=== PATIENT | female | born 1985 | race Caucasian/White ===

== ENCOUNTER 2020-02-03 11:28 | Outpatient (REF) | payer OTHER, SELFPAY ==
--- NOTE | 2020-02-03 11:43 | XR_ITS ---
EXAMINATION: XR CHEST CLINICAL INFORMATION: Chest pain COMPARISON: None TECHNIQUE: 2 views of the chest were obtained. FINDINGS: No significant abnormality is noted involving the heart, lungs, mediastinum, bony thorax or soft tissues. XR/XR chest 2V IMPRESSION: Unremarkable chest examination.
== END 2020-02-03 11:29 | disposition home or self-care (01) ==
LOC: HO.HMGCX 11:28
PROVIDERS: PCP Family Medicine; Visit Provider Family Medicine
DX: R07.9 Chest pain, unspecified (principal)
CPT/HCPCS: 71046

== ENCOUNTER 2020-03-31 08:00 | Outpatient (RCR) | payer OTHER, SELFPAY ==
--- NOTE | 2020-03-10 09:41 | MHC.PT.OD ---
[facility] [place] Office [place] Office [place] Office [address] Tesha Flores [address] [phone] F: [phone] F: [phone] F: [phone] F: [phone] Physical Therapy Daily Note Diagnosis: Pain in L foot M79.672 see updated script for both LE in chart Date of Surgery: Date of Evaluation: 01/20/20 Date of Treatment: 03/10/20 Treatments to Date: 6 Cancellations to Date: No Shows to Date: Authorized Visits: [id number] Insurance End Date: Precautions/ Contraindications: Subjective: Reports recovering from side-effects from her second covid vaccine she had late last week (+) headache, fatigue... Overall feet are doing good, has been sore in her back and her knees with prolonged hours on her feet at work. She has reported self d/c of her BP medication- advised her to discuss with PCP Dr. Larry today when she has a follow up. Pain Score and Location: 3 R plantar fascia; L peroneals Objective Flowsheet: Tests & Measures Exercises bike level 3 thee clicks up x 10 minutes level 3.0 bridge sitting over pball x 2 sets 10R bridge with hs curls x 2 sets 10R reviewed verbally prone ue/le raises over pball x 2 sets 10R prone le raises over pball no added resistance on ankles standing 4 way resisted hip with gtb x 2 sets 10R Standing fitter with opposing LE with slight knee bend for PF/DF, IV/EV x 3 sets 10R each with cues to reduce hyperext of bilateral knees half completed with opposiing foot on 4 inch step Low dye taping to R foot in effort to provide arch support ABDOMINAL BRACE WHILE PRONE DURING US, MANUAL THERAPY TO R FOOT. Modalities Pulsed US 1.0 crabtree cm2 x 8 minutes 3 MHZ to Left lateral ankle in effort to reduce pain/inflammation. Assessment: Pt verbalizing left lateral ankle and R plantar fascia sx have resolved with implement of PT activities/HEP. She continues to report soreness across central lumbar and would benefit from progression of hip/lumbar stab program (has been implemented in ball/band program). Pt requesting to continue therapy 1x/weekly to progress program for hip/core/LE monitor sx until she can resume gym activities at baseline. PT Plan: Progress CKC> hip/core strengthening program as tolerated Short Term Goals: 1.) Pt will demonstrate L ankle EV 5/5. (IR: 4-/5 painful) (met) 2.) Pt will demonstrate negative lumbar instabilty testing. (IR: (+) lumbar instability test) (improvement, not yet met) 3.) Pt will hip ext 5/5. (IR: 3+/5, L >R). (improving strength). 4.) Pt will demonstrate symetrical bridge (IR: L drop not symmetrical). Skilled Nursing Goals: 1. Pt will demonstrate L SLS 30 seconds to don pants standing with sx <3/10. (IR: unable to perform SLS due to pain L LE; Current: (+) LOB not pain. 2. Pt will demonstrate I HEP. (compliance with initiation of HEP ) 3. Pt will demonstrate functional squat with good mechanics and technique 3:3 trials. (current: improving squat ability with symmetrical weight-bearing, some knee pain). 4. Pt will demonstrate hip abd 5/5 B. (ongoing strength improvement). Electronically signed by: Tequila Pritchett, PT, DPT
== END 2020-04-30 11:08 | disposition other institution (70) ==
LOC: HO.PTWFD 08:00
PROVIDERS: Visit Provider Family Medicine
DX: M79.672 Pain in left foot (principal); M79.671 Pain in right foot
CPT/HCPCS: 97035; 97110; 97140; 97161; 97535

== ENCOUNTER 2020-06-09 09:00 | Outpatient (RCR) | payer OTHER, SELFPAY | END 2020-06-18 08:46 | disposition other institution (70) | LOC: HO.PTWFD 09:00 | PROVIDERS: Visit Provider Family Medicine | DX: M54.9 Dorsalgia, unspecified (principal); T14.8XXA Other injury of unspecified body region, initial encounter | CPT/HCPCS: 97012; 97110; 97140; 97161 ==

== ENCOUNTER 2020-10-22 09:00 | Outpatient (RCR) | payer OTHER, SELFPAY | END 2021-03-01 09:41 | disposition home or self-care (01) | LOC: HO.PTWFD 09:00 | PROVIDERS: Visit Provider Physician Assistant | DX: M76.71 Peroneal tendinitis, right leg (principal) | CPT/HCPCS: 97035; 97110; 97140; 97162; 97164; 97535 ==